=== PATIENT | male | born 1985 | race Caucasian/White ===

== ENCOUNTER 2022-01-21 12:05 | Emergency (ER) | payer OTHER ==
[~2022-01-21] VITALS: Ht 182.9 cm; Wt 96.0 kg
[2022-01-21] MEDS ORDERED: IV NORMAL SALINE 1,000ML 1,000 ML IV SCH (12:45)
--- NOTE | 2022-01-21 13:09 | PHYS DOC ---
Past History Past Surgical History: No Surgical History Alcohol Use: Occasionally General Adult EDM: Chief Complaint: SHORTNESS OF BREATH HPI: HPI: Patient is a 36-year-old male who presents to the emergency department for shortness of breath, chest pain, nonproductive cough, fever, generalized weakness and fatigue, intermittent palpitations. Patient reports that he has had the symptoms intermittently since being COVID-positive on December 17. Patient reports that he has had low-grade fever over the last couple of days. He is also reporting right-sided testicular pain x3 days with dysuria. He states that he has felt easily fatigued activity following his COVID-19 diagnosis. He reports Thursday of last week he lifted heavy at the gym and felt weak and short of breath. He reports the intermittent chest pain is occasionally relieved by rest but not caused by exertion. He reports that his palpitations are intermittent and worse at night. He denies nausea, vomiting, leg swelling, testicular swelling, urethral discharge, leg pain. Patient reports that following his COVID-19 diagnosis he was given a steroid and antibiotic by his doctor. Review of Systems: Review of Systems: Constitutional: see HPI Respiratory: see HPI Cardiovascular: see HPI GI: see HPI : see HPI Musculoskeletal: see HPI Neurologic: see HPI Current Medications: Current Meds: Current Medications Medications (Trade) Dose Ordered Sig/Chris Start Time Stop Time Status Last Admin Dose Admin Sodium Chloride 1,000 ml @ 1,000 mls/hr Q1H 01/21/22 12:45 01/21/22 13:44 Allergies: Allergies: Allergies Coded Allergies Type Severity Reaction Last Updated Verified No Known Drug Allergies 01/21/22 No Physical Exam: PE: Constitutional: Well developed, well nourished, no acute distress, non-toxic appearance. [] HENT: Normocephalic, atraumatic, bilateral external ears normal, oropharynx moist, no oral exudates, nose normal. [] Eyes: PERRL, EOMI, conjunctiva normal, no discharge. [] Neck: Normal range of motion, no tenderness, supple, no stridor. [] Cardiovascular:Heart rate regular rhythm, no murmur [] Lungs & Thorax: Bilateral breath sounds clear to auscultation, diminished lower lobes [] Abdomen: Bowel sounds normal, soft, no tenderness, no masses, no pulsatile masses. [] Skin: Warm, dry, no erythema, no rash. [] Back: No tenderness, normal ROM Extremities: No tenderness, no cyanosis, no clubbing, ROM intact, no edema. [] Neurologic: Alert and oriented X 3, normal motor function, normal sensory function, no focal deficits noted. [] Psychologic: Affect normal, judgement normal, mood normal. [] Current Patient Data: Labs: Laboratory Tests Test 01/21/22 12:55 01/21/22 12:58 01/21/22 14:22 White Blood Count 10.0 x10^3/uL Red Blood Count 4.57 x10^6/uL Hemoglobin 13.4 g/dL Hematocrit 39.7 % Mean Corpuscular Volume 87 fL Mean Corpuscular Hemoglobin 29 pg Mean Corpuscular Hemoglobin Concent 34 g/dL Red Cell Distribution Width 13.4 % Platelet Count 302 x10^3/uL Neutrophils (%) (Auto) 76 % Lymphocytes (%) (Auto) 17 % Monocytes (%) (Auto) 6 % Eosinophils (%) (Auto) 1 % Basophils (%) (Auto) 0 % Neutrophils # (Auto) 7.6 x10^3uL Lymphocytes # (Auto) 1.7 x10^3/uL Monocytes # (Auto) 0.6 x10^3/uL Eosinophils # (Auto) 0.1 x10^3/uL Basophils # (Auto) 0.0 x10^3/uL D-Dimer (Amanda) < 0.19 mg/L Sodium Level 139 mmol/L Potassium Level 4.3 mmol/L Chloride Level 102 mmol/L Carbon Dioxide Level 28 mmol/L Anion Gap 9 Blood Urea Nitrogen 15 mg/dL Creatinine 1.0 mg/dL Estimated GFR (Cockcroft-Gault) 83.6 BUN/Creatinine Ratio 15 Glucose Level 91 mg/dL Calcium Level 8.9 mg/dL Total Bilirubin 0.4 mg/dL Aspartate Amino Transf (AST/SGOT) 16 U/L Alanine Aminotransferase (ALT/SGPT) 25 U/L Alkaline Phosphatase 56 U/L Troponin I High Sensitivity 5 ng/L Total Protein 6.6 g/dL Albumin 3.4 g/dL Albumin/Globulin Ratio 1.1 Influenza Type A (Rapid) Negative Influenza Type B (Rapid) Negative Urine Collection Type Unknown Urine Color Yellow Urine Clarity Clear Urine pH 5.5 Urine Specific [place] 1.015 Urine Protein Neg Urine Glucose (UA) Neg mg/dL Urine Ketones (Stick) Neg mg/dL Urine Blood Neg Urine Nitrite Neg Urine Bilirubin Neg Urine Urobilinogen Dipstick 0.2 mg/dL Urine Leukocyte Esterase Neg Urine RBC Rare /HPF Urine WBC Occ /HPF Urine Squamous Epithelial Cells Few /LPF Urine Bacteria 0 /HPF Current Medications Medications (Trade) Dose Ordered Sig/Chris Route PRN Reason Start Time Stop Time Status Last Admin Dose Admin Sodium Chloride 1,000 ml @ 1,000 mls/hr Q1H IV 01/21/22 12:45 01/21/22 13:44 DC 01/21/22 13:03 Albuterol/ Ipratropium (Duoneb) 3 ml 1X ONCE NEB 01/21/22 13:15 01/21/22 13:21 DC 01/21/22 14:02 Vital Signs: Vital Signs Date Time Temp Pulse Resp B/P (MAP) Pulse Ox O2 Delivery O2 Flow Rate FiO2 01/21/22 12:20 98.4 84 16 119/75 (90) 98 EKG: EKG: [] EKG performed by ER staff at 1236 shows sinus rhythm rate of 77, no STEMI read Dr. Cerna Radiology/Procedures: Radiology/Procedures: []PROCEDURE: PORTABLE CHEST 1V Exam Date: 01/21/2022 12:49 PM XR CHEST 1V Indication: Reason: soa / Spl. Instructions: / History: . FINDINGS/ IMPRESSION: The cardiac silhouette and pulmonary vasculature are within normal limits. There is no focal consolidation, pleural effusion or pneumothorax. The visualized osseous structures are intact. Electronically signed by: Vince Aquino MD (01/21/2022 1:18 PM) [id number] DICTATED AND SIGNED BY: VINCE AQUINO MD DATE: 01/21/22 1313 CC: ASTRID CACERES; MIKE LO FILM COLOR TESTER ~ Heart Score: C/O Chest Pain: Yes HEART Score for Chest Pain: HEART Score for Chest Pain Response (Comments) Value History Slighlty/Non-Suspicious 0 ECG Normal 0 Age < 45 0 Risk Factors No Risk Factors 0 Troponin < Normal Limit 0 Total 0 Risk Factors: Risk Factors: DM, Current or recent (<one month) smoker, HTN, HLP, family history of CAD, obesity. Risk Scores: Score 0 - 3: 2.5% MACE over next 6 weeks - Discharge Home Score 4 - 6: 20.3% MACE over next 6 weeks - Admit for Clinical Observation Score 7 - 10: 72.7% MACE over next 6 weeks - Early Invasive Strategies Course & Med Decision Making: Course & Med Decision Making Pertinent Labs and Imaging studies reviewed. (See chart for details) Patient presents for soa, cp, palpitations, generalized fatigue/weakness post covid infection in December 17. Work up includes blood work including ddimer to r/o PE and troponin, chest xray, influenza testing, urinalysis with GC chlam testing as pt reports dysuria and right testicular pain. Patients blood work was unremarkable, he had negative ddimer, troponin was not elevated. CP has been intermittent x1mo therefore, serial enzymes not ordered, patients heart score was 0. CXR showed no acute findings. Negative influenza testing. UA unremarkable. Patient reports improvement in his symptoms following treatment in ER. Patient will be discharged home with an albuterol inhaler that he can use for shortness of breath. He is advised to follow-up with his primary care provider regarding his symptoms. Patient's likely COVID abiodun. His vital signs are stable. I discussed with patient all findings and diagnostic testing as well as the need to follow-up with PCP for further evaluation and treatment or return to the ER if any new or worsening symptoms. Strict return precautions were also discussed at length. Patient voiced understanding and agreement with the plan. Patient is hemodynamically stable at the time of disposition. Dragon Disclaimer: Dragon Disclaimer: This electronic medical record was generated, in whole or in part, using a voice recognition dictation system. Departure Departure: Impression: Primary Impression: COVID-19 linh schneider manifesting chronic decreased mobility and endurance Disposition: 01 HOME / SELF CARE / HOMELESS Condition: GOOD Referrals: ASTRID CACERES (PCP) Patient Instructions: Shortness of Breath Additional Instructions: You are seen in the emergency department for shortness of breath, chest pain, generalized fatigue and weakness and palpitations post-COVID infection. Your blood work was unremarkable your chest x-ray did not show any acute findings. As we discussed, at this time does not appear that you are experiencing acute coronary syndrome. You are being discharged home with an albuterol inhaler that you can use for shortness of breath. Please follow-up with your primary care provider tomorrow regarding your ER visit. Return to the emergency department if you develop chest pain, shortness of breath, high fevers refractory to treatment, dizziness/syncope, intractable nausea or vomiting or any new or worsening concerns. Scripts Albuterol Sulfate (PROAIR HFA INHALER) 8.5 Gm Hfa.aer.ad 2 PUFF IH PRN Q4-6HRS PRN for wheezing for 21 Days, #1 INHALER 0 Refills as needed for wheezing Prov: MIKE LO APRN 01/21/22 MIKE LO APRN January 21, 2022 13:09
[2022-01-21] MEDS ORDERED: IPRATRPIUM/ALBUTEROL 0.5/2.5MG 3 ML NEBU. NEB ONE (13:15)
--- NOTE | 2022-01-21 13:20 | RAD ---
Exam Date: 01/21/2022 12:49 PM XR CHEST 1V Indication: Reason: soa / Spl. Instructions: / History: . FINDINGS/ IMPRESSION: The cardiac silhouette and pulmonary vasculature are within normal limits. There is no focal consolidation, pleural effusion or pneumothorax. The visualized osseous structures are intact. Electronically signed by: Ham Aquino MD (01/21/2022 1:18 PM) [id number]
[2022-01-21 13:26] LABS: BASO % 0 % (0-3); EOS # 0.1 x10^3/uL (0.0-0.7); EOS % 1 % (0-3); HEMATOCRIT 39.7 % (39.0-53.0); HEMOGLOBIN 13.4 g/dL (13.0-17.5); LYMPH # 1.7 x10^3/uL (1.0-4.8); LYMPH % 17 % (24-48); MEAN CORPUSCULAR HEMOGLOBIN 29 pg (25-35); MEAN CORPUSCULAR HGB CONC 34 g/dL (31-37); MEAN CORPUSCULAR VOLUME 87 fL (79-100); MONO # 0.6 x10^3/uL (0.0-1.1); MONO % 6 % (0-9); NEUT # 7.6 x10^3uL (1.8-7.7); NEUT % 76 % (31-73); PLATELET COUNT 302 x10^3/uL (140-400); RED BLOOD COUNT 4.57 x10^6/uL (4.30-5.70); RED CELL DISTRIBUTION WIDTH 13.4 % (11.5-14.5)
[2022-01-21 13:40] LABS: CALCIUM 8.9 mg/dL (8.5-10.1); GFR 83.6; POTASSIUM 4.3 mmol/L (3.5-5.1)
[2022-01-21 13:45] LABS: ALBUMIN 3.4 g/dL (3.4-5.0); ALBUMIN/GLOBULIN RATIO 1.1 (1.0-1.7); TOTAL BILIRUBIN 0.4 mg/dL (0.2-1.0); TOTAL PROTEIN 6.6 g/dL (6.4-8.2)
[2022-01-21 14:07] LABS: INFLUENZA A PATIENT NEGATIVE (NEGATIVE); INFLUENZA B PATIENT NEGATIVE (NEGATIVE)
[2022-01-21 15:22] VITALS: BP 122/73
[2022-01-21 15:22] LABS: CLARITY,URINE CLEAR; COLOR,URINE YELLOW; GLUCOSE,URINE NEG (NEG)
[2022-01-21 15:23] LABS: BACTERIA,URINE 0 /HPF (0-FEW); NITRITE,URINE NEG (NEG); RBC,URINE RARE /HPF (0-2); SQUAMOUS EPITHELIAL CELL,UR FEW /LPF; UROBILINOGEN,URINE 0.2 mg/dL (0.2 mg/dL); WBC,URINE OCC /HPF (0-4)
[2022-01-21] MEDS ORDERED: ALBU2.5V8 IH (15:38)
== END 2022-01-21 16:05 | disposition home or self-care (01) ==
LOC: ER 12:05
DX: U09.9 Post COVID-19 condition, unspecified (principal); N50.811 Right testicular pain; R30.0 Dysuria
CPT/HCPCS: 36415; 71045; 80053; 81001; 84484; 85025; 85379; 87491; 87591; 87804; 93005; 94640; 96360; 99285; J7030; 87428